=== PATIENT | male | born 1955 | race Caucasian/White ===

== ENCOUNTER 2018-05-29 19:37 | Emergency (ER) | payer OTHER ==
[2018-05-29] MEDS ORDERED: MORPHINE SULFATE 4 MG/ML SYRINGE IM STA (20:22)
[2018-05-29] MEDS ORDERED: TERBUTALINE 1 MG/ML VIAL SQ STA (20:22)
--- NOTE | 2018-05-29 20:26 | ED ---
General Adult HPI - General Chief complaint: Urogenital Stated complaint: groin area problems Time Seen by Provider: 05/29/18 20:15 Source: patient, RN notes reviewed, old records reviewed Mode of arrival: ambulatory Limitations: no limitations - History of Present Illness Initial comments: 62 -year-old presenting with correction lasting 5 hours. Somewhat painful all the symptoms have improved with rest 30 minutes. Patient has previous history of prostate cancer status post resection 3 months prior. Patient injected suprachoroidal medics, 60 units at the onset of symptoms. This is the second time the patient has used this medication which was prescribed by his urologist. Patient has no other complaints. - Related Data Home Medications Medication Instructions Recorded Confirmed Aspirin [Dalhart Aspirin EC] 81 mg PO DAILY 05/29/18 05/29/18 Atorvastatin [Lipitor] 40 mg PO HS 05/29/18 05/29/18 Allergies Allergy/AdvReac Type Severity Reaction Status Date / Time Sulfa (Sulfonamide Allergy Rash/Hives Verified 05/29/18 20:38 Antibiotics) Review of Systems ROS Statement: Those systems with pertinent positive or pertinent negative responses have been documented in the HPI. ROS Other: All systems not noted in ROS Statement are negative. Past Medical History Past Medical History: Cancer, Hyperlipidemia, Prostate Disorder History of Any Multi-Drug Resistant Organisms: None Reported Additional Past Surgical History / Comment(s): Prostate Past Psychological History: No Psychological Hx Reported Smoking Status: Never smoker Past Alcohol Use History: Rare Past Drug Use History: None Reported General Exam Limitations: no limitations General appearance: alert, in no apparent distress Head exam: Present: atraumatic, normocephalic Eye exam: Present: normal appearance ENT exam: Present: normal exam, normal oropharynx Neck exam: Present: normal inspection. Absent: tenderness, meningismus Respiratory exam: Present: normal lung sounds bilaterally. Absent: respiratory distress, wheezes Cardiovascular Exam: Present: regular rate, normal rhythm GI/Abdominal exam: Present: soft. Absent: distended, tenderness exam: Present: other (Priapism). Absent: urethral discharge, scrotal swelling Extremities exam: Present: normal inspection, normal capillary refill. Absent: pedal edema Neurological exam: Present: alert, oriented X3, CN II-XII intact. Absent: motor sensory deficit Psychiatric exam: Present: normal affect, normal mood Skin exam: Present: warm, dry. Absent: cyanosis, diaphoretic Course Vital Signs 05/29/18 19:59 Temperature 98.2 F Pulse Rate 60 Respiratory 16 Rate Blood Pressure 142/82 O2 Sat by Pulse 98 Oximetry Medical Decision Making - Medical Decision Making 62-year-old male presents for evaluation of priapism patient is approximately 5 hours at the time of presentation. He did take pseudoephedrine at home with minimal improvement. Symptoms began to improve just prior to my evaluation. He is given morphine and terbutaline in the emergency department. Did discuss case with urology on-call, Dr. Tanner, regarding the injectable medication the patient is on. For treatment can be given. After terbutaline injection and morphine, patient's erection is resolved. He is resting comfortably. We will be discharged home. Will not use this injectable medication until he follows up with his urologist. Please return with worsening or changing symptoms. Disposition Clinical Impression: Priapism Disposition: HOME SELF-CARE Condition: Good Instructions (If sedation given, give patient instructions): Priapism (ED) Additional Instructions: Please follow up with your urologist, to not use medication until you follow-up with urology. Return with worsening or changing symptoms. Is patient prescribed a controlled substance at d/c from ED?: No Referrals: Dorie Kenny MD [Primary Care Provider] - 1-2 days Time of Disposition: 21:00
[2018-05-29 21:11] VITALS: BP 148/80; PULSE 62; RESP 18; TEMP 98
== END 2018-05-29 21:11 | disposition home or self-care (01) ==
LOC: EC 19:37
DX: N48.30 Priapism, unspecified (principal); E78.5 Hyperlipidemia, unspecified; Z85.46 Personal history of malignant neoplasm of prostate; Z98.890 Other specified postprocedural states; Z79.82 Long term (current) use of aspirin; Z79.899 Other long term (current) drug therapy; Z88.2 Allergy status to sulfonamides
CPT/HCPCS: 99283; 96372 ×2; J2270; J3105

== ENCOUNTER → 2022-01-01 | Outpatient (CLI) | payer MEDICARE ==
--- NOTE | 2022-01-01 11:22 | XR ---
EXAMINATION TYPE: XR foot complete RT DATE OF EXAM: 01/01/2022 COMPARISON: NONE HISTORY: Pain TECHNIQUE: Frontal, lateral and oblique images of the right foot are obtained. COMPARISON: None. FINDINGS: There is no acute fracture/dislocation evident. The joint spaces appear within normal limi ts. Soft tissue swelling of the first MTP joint. No osseous erosions.. Bone mineralization is within normal limits. No radiopaque foreign bodies. Small enthesophyte at the Achilles tendon insertion to t he calcaneus. IMPRESSION: 1. No acute fracture or dislocation. 2. Soft tissue swelling of the first MTP joint without osseous erosion. 3. Small enthesophyte at the Achilles tendon insertion to the calcaneus.
== END | disposition home or self-care (01) ==
LOC: RADXRYALE 10:56
PROVIDERS: ATTEND Internal Medicine
DX: M76.61 Achilles tendinitis, right leg (principal)

== ENCOUNTER → 2023-04-17 | Outpatient (CLI) | payer MEDICARE ==
--- NOTE | 2023-04-18 07:19 | XR ---
EXAMINATION TYPE: XR knee complete RT DATE OF EXAM: 04/17/2023 CLINICAL HISTORY: pain TECHNIQUE: Three views of the right knee are obtained. COMPARISON: None. FINDINGS: There is no acute fracture/dislocation. The tri-compartment joint spaces appear within no rmal limits. Prepatellar soft tissue edema. IMPRESSION: There is no acute fracture or dislocation.ICD 10 NO FRACTURE, INITIAL EVALUATION
--- NOTE | 2023-04-18 07:27 | XR ---
EXAMINATION TYPE: XR tibia fibula RT DATE OF EXAM: 04/17/2023 CLINICAL HISTORY: pain TECHNIQUE: AP and lateral images of the right tibia and fibula are obtained. COMPARISON: None. FINDINGS: There is no acute fracture/dislocation evident. The joint spaces appear within normal hastings its. The overlying soft tissue appears unremarkable. IMPRESSION: There is no acute fracture or dislocation seen. ICD 10 NO FRACTURE, INITIAL EVALUATION
== END | disposition home or self-care (01) ==
LOC: RADXRYALE 15:32
PROVIDERS: ATTEND Internal Medicine
DX: S89.91XA Unspecified injury of right lower leg, initial encounter (principal)